=== PATIENT | female | born 1980 | race Caucasian/White ===

== ENCOUNTER → 2020-08-25 14:06 | Outpatient (BNVA) | payer OTHER, SELFPAY | PROVIDERS: Family Provider Family Medicine; PCP Family Medicine; Visit Provider Internal Medicine | DX: E03.8 Other specified hypothyroidism (principal); E06.3 Autoimmune thyroiditis; E55.9 Vitamin D deficiency, unspecified; M25.50 Pain in unspecified joint; R79.89 Other specified abnormal findings of blood chemistry | CPT/HCPCS: 99205 ==

== ENCOUNTER → 2020-09-22 09:55 | Outpatient (BNVA) | payer OTHER, SELFPAY | PROVIDERS: Family Provider Family Medicine; PCP Family Medicine; Visit Provider Internal Medicine | DX: M25.50 Pain in unspecified joint (principal); Z11.59 Encounter for screening for other viral diseases; E03.9 Hypothyroidism, unspecified; E55.9 Vitamin D deficiency, unspecified; Z79.899 Other long term (current) drug therapy; F41.9 Anxiety disorder, unspecified; R53.83 Other fatigue | CPT/HCPCS: 99204 ==

== ENCOUNTER 2020-09-22 12:13 | Outpatient (CLI) | payer OTHER, SELFPAY ==
--- NOTE | 2020-09-22 12:19 | XRR_ITS ---
PROCEDURE INFORMATION: Exam: XR Bilateral Sacroiliac Joints, 3 or More Views Exam date and time: 09/22/2020 12:51 PM Age: 40 years old Clinical indication: Condition or disease; Other: Psoriasis; Patient HX: Lauren disease; Additional info: L40.9 - psoriasis, unspecified TECHNIQUE: Imaging protocol: XR Bilateral XR of the sacroiliac joints, 3 or more views. COMPARISON: No relevant prior studies available. FINDINGS: Bones/joints: Normal. No acute fracture. There is a mild osteoarthritis seen in the bilateral sacroiliac joints. The joint spaces are preserved. Soft tissues: Normal. XR/XR sacroiliac [facility] 3V [id number] IMPRESSION: 1. Mild osteoarthritis 2. Otherwise No acute findings.
--- NOTE | 2020-09-22 12:19 | XRR_ITS ---
PROCEDURE INFORMATION: Exam: XR Right Hand Exam date and time: 09/22/2020 12:50 PM Age: 40 years old Clinical indication: Condition or disease; Other: Vitamin d deficiency; Patient HX: Jason hand pain in joints, arlen disease; Additional info: E55.9 - vitamin d deficiency, unspecified TECHNIQUE: Imaging protocol: XR Right hand. Views: 1 or 2 views. COMPARISON: No relevant prior studies available. FINDINGS: Bones/joints: Negative for acute bony abnormality Soft tissues: Normal. XR/XR hand RT 2V [id number] IMPRESSION: No acute findings.
--- NOTE | 2020-09-22 12:19 | XRR_ITS ---
PROCEDURE INFORMATION: Exam: XR Left Hand Exam date and time: 09/22/2020 12:50 PM Age: 40 years old Clinical indication: Condition or disease; Other: Vitamin d deficiency; Patient HX: Jason hand pain in joints, arlen disease; Additional info: E55.9 - vitamin d deficiency, unspecified TECHNIQUE: Imaging protocol: XR Left hand. Views: 3 or more views. COMPARISON: No relevant prior studies available. FINDINGS: Bones/joints: Negative for acute bony abnormality Soft tissues: Normal. XR/XR hand LT 2V [id number] IMPRESSION: No acute findings.
[2020-09-22 13:19] LABS: Basophils % 0.2 %; Eosinophils % 0.1 %; Hematocrit 39.5 % (37.0-47.0); Hemoglobin 12.8 g/dL (11.5-15.3); Lymphocytes # 2.4 10^3/uL (0.8-4.8); Lymphocytes % 28.7 %; Mean Corpuscular HGB Conc 32.4 g/dL (30.0-36.0); Mean Corpuscular Hemoglobin 32.1 pg (28.0-34.0); Mean Platelet Volume 10.1 fL (7.4-10.4); Monocytes # 0.5 10^3/uL (0.2-0.9); Monocytes % 6.4 %; Neutrophils # 5.47 10^3/uL (1.8-7.7); Neutrophils % 64.4 %; Nucleated Red Blood Cells % 0 %; Platelet Count 302 10^3/cmm (130-400); Red Blood Count 3.99 10^6/uL (4.1-5.3); Red Cell Distribution Width 12.5 % (12.1-15.1); White Blood Count 8.5 10^3/uL (4.0-10.0)
[2020-09-22 14:16] LABS: Erythrocyte Sedimentation Rate 19 mm/hr (0-15)
[2020-09-22 14:20] LABS: Alanine Aminotransferase 17 U/L (0-33); Albumin Level 4.6 g/dL (3.5-5.2); Alkaline Phosphatase 83 IU/L (35-105); Anion Gap 12.9 (5-19); Aspartate Amino Transferase 18 U/L (0-32); Blood Urea Nitrogen 11 mg/dL (6-20); C Reactive Protein 2.1 mg/L (0.0-4.9); Calcium 9.5 mg/dL (8.5-10.5); Carbon Dioxide 28 mmol/L (22-29); Chloride 101 mmol/L (98-107); Creatine Phosphokinase 93 U/L (26-192); Globulin 3.2 g/dL (1.3-4.6); Glomerular Filtration Rate 91.8 mL/min (90-130); Glucose 99 mg/dL (65-115); Magnesium 2.2 mg/dL (1.7-2.3); Osmolality Calculated 285 mOsm/kg (285-295); Phosphorus 3.1 mg/dL (2.5-4.5); Potassium 3.9 mmol/L (3.5-5.1); Sodium 138 mmol/L (136-145); Thyroid Stimulating Hormone 4.56 uIU/mL (0.27-4.20); Total Bilirubin 0.3 mg/dL (0.15-1.2); Total Protein 7.8 g/dL (6.6-8.7)
[2020-09-22 14:32] LABS: Hepatitis B Core AB, Total Non-Reactive (Nonreactive); Hepatitis B Surface Antigen Non-Reactive (Nonreactive); Hepatitis C Virus Antibody Non-Reactive (Nonreactive)
[2020-09-22 14:43] LABS: Calcium 9.7 mg/dL (8.5-10.5)
[2020-09-22 16:55] LABS: Ferritin 58 ng/mL (15-150)
[2020-09-22 17:02] LABS: Parathyroid Hormone 38.9 pg/mL (15-65)
[2020-09-22 17:11] LABS: Vitamin B12 442 pg/mL (232-1245)
[2020-09-23 11:12] LABS: COMPLEMENT COMPONENT C3C 152 mg/dL (83-193); COMPLEMENT COMPONENT C4C 19 mg/dL (15-57)
[2020-09-23 13:23] LABS: Cyclic Citrullinated Peptide <16 UNITS
[2020-09-23 15:59] LABS: COMPLEMENT, TOTAL (CH50) >60 U/mL (31-60)
[2020-09-24 12:55] LABS: THYROID PEROXIDASE ANTIBODIES >900 IU/mL (<9)
[2020-09-24 15:13] LABS: ANA SCREEN, IFA NEGATIVE (NEGATIVE)
[2020-09-24 16:43] LABS: CENTROMERE B ANTIBODY <1.0 NEG AI (<1.0 NEG); JO-1 ANTIBODY <1.0 NEG AI (<1.0 NEG); RNP ANTIBODY <1.0 NEG AI (<1.0 NEG); SCL-70 ANTIBODY <1.0 NEG AI (<1.0 NEG); SJOGREN'S ANTIBODY (SS-A) <1.0 NEG AI (<1.0 NEG); SM ANTIBODY <1.0 NEG AI (<1.0 NEG); SS-B <1.0 NEG AI (<1.0 NEG)
[2020-09-25 18:32] LABS: Vitamin B1(Thiamin) Plas/Ser 10 nmol/L (8-30)
[2020-09-26 17:48] LABS: Tissue Transglutaminase IgA Ab <1 U/mL; Tissue transglutaminase Ab.IgG 4 U/mL
[2020-09-27 16:54] LABS: Gliadin Ab.IgA 17 U (<20); Gliadin Ab.IgG 3 U (<20)
[2020-09-27 23:02] LABS: DNA AB (DS) CRITHIDIA,IFA NEGATIVE (NEGATIVE)
[2020-09-28 22:37] LABS: Immunoglobulin A 390 mg/dL (47-310)
== END 2020-09-22 12:14 | disposition home or self-care (01) ==
PROVIDERS: PCP Emergency Medicine; Visit Provider Internal Medicine
DX: E55.9 Vitamin D deficiency, unspecified (principal); L40.9 Psoriasis, unspecified; D86.9 Sarcoidosis, unspecified; Z11.59 Encounter for screening for other viral diseases
CPT/HCPCS: 36415; 72202; 73120; 80053; 82310; 82550; 82607; 82728; 82784; 83516; 83735; 83970; 84100; 84425; 84443; 85025; 85651; 86140; 86160; 86162; 86235; 86255; 86376; 86704; 86803; 87340

== ENCOUNTER 2020-10-12 15:04 | Outpatient (CLI) | payer OTHER, SELFPAY ==
[2020-10-12 15:58] LABS: Total Volume Urine 1000 ml
[2020-10-12 16:09] LABS: Urine Creatinine 108 mg/dL (28-217)
[2020-10-15 19:03] LABS: Total Urine 1000 mL; Urine Creatinine 1.05 g/24 h (0.50-2.15)
== END 2020-10-12 15:05 | disposition home or self-care (01) ==
LOC: LAB 15:15
PROVIDERS: PCP Emergency Medicine; Visit Provider Internal Medicine
DX: E55.9 Vitamin D deficiency, unspecified (principal); R79.89 Other specified abnormal findings of blood chemistry; E03.8 Other specified hypothyroidism; E06.3 Autoimmune thyroiditis
CPT/HCPCS: 82530; 82570

== ENCOUNTER → 2020-12-23 13:00 | Outpatient (BNVA) | payer OTHER, SELFPAY | PROVIDERS: PCP Emergency Medicine; Visit Provider Internal Medicine | DX: M25.50 Pain in unspecified joint (principal); E51.9 Thiamine deficiency, unspecified; E03.8 Other specified hypothyroidism; E06.3 Autoimmune thyroiditis; M53.3 Sacrococcygeal disorders, not elsewhere classified; Z79.899 Other long term (current) drug therapy; F17.290 Nicotine dependence, other tobacco product, uncomplicated | CPT/HCPCS: 36415; 84439; 84443; 86812; 99214 ==

== ENCOUNTER → 2021-01-19 15:06 | Outpatient (BNVA) | payer OTHER, SELFPAY | PROVIDERS: PCP Emergency Medicine; Visit Provider Orthopaedic Surgery | DX: M25.559 Pain in unspecified hip (principal) | CPT/HCPCS: 73521; 73522 ==

== ENCOUNTER → 2021-03-10 08:45 | Outpatient (BNVA) | payer OTHER, SELFPAY | PROVIDERS: PCP Emergency Medicine; Visit Provider Specialist | DX: G43.711 Chronic migraine without aura, intractable, with status migrainosus (principal); M79.7 Fibromyalgia; E03.8 Other specified hypothyroidism; E06.3 Autoimmune thyroiditis; F17.290 Nicotine dependence, other tobacco product, uncomplicated | CPT/HCPCS: 99204 ==

== ENCOUNTER 2021-04-19 12:09 | Outpatient (CLI) | payer OTHER, SELFPAY ==
[2021-04-19 13:27] LABS: Free T4 Free Thyroxine 1.39 ng/dL (0.82-1.77); Thyroid Stimulating Hormone 0.55 uIU/mL (0.27-4.20)
--- NOTE | 2021-04-19 13:30 | US_ITS ---
WS: [id number] THYROID ULTRASOUND HISTORY: Dysphagia COMPARISON: None available. Right lobe: 1.1 cm x 1.2 cm x 3.5 cm (w x ap x l). Volume: 2.4 cm3. Diffuse atrophy of the gland. Coarsened echotexture throughout the thyroid. Consistent with history o f Lauren's. No increased vascularity. Left lobe: 1.1 cm x 1.1 cm x 3.5 cm (w x ap x l). Volume: 2.2 cm3. Atrophied gland with coarse echotexture and heterogeneous appearance. Isthmus: 0.3 cm. 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
== END 2021-04-19 12:10 | disposition home or self-care (01) ==
LOC: US 12:12
PROVIDERS: PCP Emergency Medicine; Visit Provider Internal Medicine
DX: R13.10 Dysphagia, unspecified (principal); E03.8 Other specified hypothyroidism; E06.3 Autoimmune thyroiditis
CPT/HCPCS: 36415; 76536; 84439; 84443

== ENCOUNTER → 2021-06-14 10:45 | Outpatient (BNVA) | payer OTHER, SELFPAY | PROVIDERS: PCP Emergency Medicine; Visit Provider Internal Medicine | DX: E03.8 Other specified hypothyroidism (principal); E06.3 Autoimmune thyroiditis; Z79.899 Other long term (current) drug therapy; E55.9 Vitamin D deficiency, unspecified | CPT/HCPCS: 36415; 80053; 85025; 85651; 86140; 86431 ==

== ENCOUNTER → 2021-06-15 13:18 | Outpatient (BNVA) | payer OTHER, SELFPAY | PROVIDERS: PCP Emergency Medicine; Visit Provider Specialist | DX: G43.711 Chronic migraine without aura, intractable, with status migrainosus (principal) | CPT/HCPCS: 99214 ==

== ENCOUNTER 2021-06-25 10:41 | Outpatient (CLI) | payer OTHER, SELFPAY ==
[2021-06-25 11:04] VITALS: BP 139/82; PULSE 79; RESP 18; TEMP 36.7; O2SAT 99; BMI 25.4
[2021-06-25 12:24] VITALS: BP 132/86; PULSE 67; RESP 18; TEMP 36.4
== END 2021-06-25 10:42 | disposition home or self-care (01) ==
LOC: OPS 10:42
PROVIDERS: PCP Emergency Medicine; Visit Provider Nurse Practitioner Family
DX: U07.1 COVID-19 (principal)
CPT/HCPCS: 96365

== ENCOUNTER 2021-07-21 15:52 | Outpatient (CLI) | payer OTHER, SELFPAY ==
--- NOTE | 2021-07-21 16:00 | MR_ITS ---
WS: [id number] MRI HEAD WITHOUT CONTRAST TECHNIQUE: Sagittal T1, T2 axial, T2 axial FLAIR, axial and coronal T1 images, axial susceptibility w eighted imaging, axial diffusion weighted images, and coronal T2 images were obtained. CLINICAL INFORMATION: G43.711 - Chronic migraine without aura, intractable, wit... COMPARISON: None. FINDINGS: No evidence restricted diffusion to suggest acute ischemia. Ventricular system and basal cisterns are patent. A few tiny foci of T2 hyperintensity in the frontal periventricular and subcortical white ma tter nonspecific in a patient this age but can be seen with migraine headaches. No hemosiderin on rajeev ceptibly weighted images. Normal optic chiasm and pituitary infundibulum. Temporal lobes and hippocampal formations are normal in appearance. Normal posterior fossa. Normal va scular flow voids at the skull base. No extra-axial fluid collections. No evidence of mass or mass ef fect. Air-fluid levels in the maxillary sinuses. Mild mucosal thickening in the paranasal sinuses. Mi ld mucosal thickening right mastoid tip. MR/MR head wo con* [id number] IMPRESSION: 1. No evidence of restricted diffusion to suggest acute ischemia. 2. A few small foci of T2 hyperintensity in the frontal and periventricular wh ite matter nonspecific in a patient this age but can be seen with migraine head aches. 3. Temporal lobes and hippocampal formations are normal in appearance. 4. Maxillary sinusitis with air-fluid levels. Mild mucosal thickening in the p aranasal sinuses. 5. No hemosiderin on the susceptibly weighted images.
== END 2021-07-21 15:53 | disposition home or self-care (01) ==
LOC: RADSHAW 16:05
PROVIDERS: PCP Emergency Medicine; Visit Provider Specialist
DX: G43.711 Chronic migraine without aura, intractable, with status migrainosus (principal); J32.0 Chronic maxillary sinusitis
CPT/HCPCS: 70551

== ENCOUNTER → 2021-08-05 14:47 | Outpatient (BNVA) | payer MEDICAID, SELFPAY | PROVIDERS: PCP Emergency Medicine; Visit Provider Specialist | DX: M79.642 Pain in left hand (principal); G43.711 Chronic migraine without aura, intractable, with status migrainosus | CPT/HCPCS: 64615; 99213; J0585 ==

== ENCOUNTER → 2021-10-11 10:22 | Outpatient (BNVA) | payer MEDICAID, SELFPAY | PROVIDERS: PCP Emergency Medicine; Referring Provider Specialist; Visit Provider Specialist | DX: G56.03 Carpal tunnel syndrome, bilateral upper limbs (principal) | CPT/HCPCS: 73130 ==

== ENCOUNTER 2021-10-11 11:12 | Outpatient (CLI) | payer MEDICAID, SELFPAY ==
[2021-10-11 12:38] LABS: Free T4 Free Thyroxine 1.51 ng/dL (0.82-1.77); Thyroid Stimulating Hormone 0.04 uIU/mL (0.27-4.20)
[2021-10-12 11:08] LABS: T3 Total 91 ng/dL (76-181)
== END 2021-10-11 11:13 | disposition home or self-care (01) ==
LOC: LAB 11:16
PROVIDERS: PCP Emergency Medicine; Visit Provider Internal Medicine
DX: E03.8 Other specified hypothyroidism (principal); E06.3 Autoimmune thyroiditis; R79.89 Other specified abnormal findings of blood chemistry
CPT/HCPCS: 84439; 84443; 84480

== ENCOUNTER → 2021-10-28 13:59 | Outpatient (BNVA) | payer MEDICAID, SELFPAY | PROVIDERS: PCP Emergency Medicine; Visit Provider Specialist | DX: G43.711 Chronic migraine without aura, intractable, with status migrainosus (principal); M18.9 Osteoarthritis of first carpometacarpal joint, unspecified; E06.3 Autoimmune thyroiditis; F42.9 Obsessive-compulsive disorder, unspecified; F32.A Depression, unspecified; F17.290 Nicotine dependence, other tobacco product, uncomplicated | CPT/HCPCS: 64615; 99214; J0585 ==

== ENCOUNTER 2021-11-10 21:25 | Emergency (ER) | payer MEDICAID, SELFPAY ==
[2021-11-10 22:38] VITALS: BP 173/101; PULSE 97; RESP 13; TEMP 37.1; O2SAT 98; BMI 23.6
--- NOTE | 2021-11-10 22:46 | XRR_ITS ---
PROCEDURE INFORMATION: Exam: XR Chest Exam date and time: 11/10/2021 11:13 PM Age: 41 years old Clinical indication: Cough and shortness of breath; Patient HX: Cough with congestion. SOB. ; Additional info: Cough, chest congestion TECHNIQUE: Imaging protocol: XR of the chest. Views: 1 view. COMPARISON: No relevant prior studies available. FINDINGS: Lungs: Unremarkable. No consolidation. Pleural spaces: Unremarkable. No pleural effusion. No pneumothorax. Heart/Mediastinum: Unremarkable. No cardiomegaly. Bones/joints: Unremarkable. XR/XR chest 1V portable [id number] IMPRESSION: No acute findings.
--- NOTE | 2021-11-10 23:03 | ED_ITS ---
HPI - SOB/Dyspnea General: Chief Complaint: Shortness of Breath/Dyspnea Stated Complaint: sob Time Seen by Provider: 11/10/21 22:46 History of Present Illness: HPI Narrative: 41-year-old female comes in today for complaints of sinus pressure, cough and some chest congestion since Monday. Patient had some Botox injections for chronic migraines last Monday. Patient believes the illness may be secondary to the Botox administration. Patient reports that she has had similar symptoms before with Botox, but not with respiratory symptoms. Patient appears mildly unwell but not toxic. Patient does have mild hoarseness of voice. Associated symptoms: Reports chest congestion; Deny chest pain Review of Systems General: Reports: 10 or more systems reviewed and unremarkable except in HPI and below ENMT: Reports: sinus pain Card: Denies: chest pain Resp: Reports: non-productive cough and chest congestion Musc: Denies: neck pain or back pain Skin/Breast: Denies: rash PFSH ED PFSH: Medical History Chronic cystitis Fibromyalgia Lauren's disease (Unknown) Surgical History H/O: hysterectomy History of endometrial ablation Previous section Family History Mother Cancer Father Diabetes Cancer Bone and Prostate Social History Smoking and tobacco status: current every day smoker e-cigarettes E-Cigarette Details: vaporizer device Second hand smoke exposure: Yes Alcohol intake: never History of recent travel: No Physical Exam Const: COMMON NORMALS: alert HENMT: COMMON NORMALS: TM's normal bilaterally NOSE: Nasal discharge present clear TYMPANIC MEMBRANE: TM's normal bilaterally THROAT: posterior oropharynx normal Resp: COMMON NORMALS: normal respiratory effort AUSCULTATION: wheezes (Mild expiratory wheeze) Cardio: COMMON NORMALS: regular rate and regular rhythm RATE: regular rate RHYTHM: regular rhythm Extremity: COMMON NORMALS: no pedal edema Neuro: SENSORIUM/ORIENTATION: Yes alert Skin: COMMON NORMALS: no rashes or lesions noted GENERAL SKIN EXAM: no rashes or lesions noted Course Vital Signs: Vital signs: Vital Signs Temperature 98.8 F 11/10/21 22:38 Pulse Rate 97 11/10/21 22:38 Respiratory Rate 13 11/10/21 22:38 Blood Pressure 173/101 11/10/21 22:38 Pulse Oximetry 98 11/10/21 22:38 MDM - SOB/Dyspnea Medical Decision Making Patient presents with flulike symptoms. Patient had recently been given some Botox injections last Monday and had a similar response to prior dosing. On exam patient has some mild expiratory wheezes. Skin is warm and dry. Clear drainage in the posterior pharynx. Vital signs are normal. Differential diagnosis includes influenza, pneumonia, bronchitis. Chest x-ray was normal. Flu test was negative. I believe the patient probably has a bronchitis secondary to an immune response to the Botox. We will go ahead and give 1 dose of dexamethasone, albuterol to use as needed for wheezing or shortness of breath, and cover with antibiotics for secondary bacterial infection due to patient's history of autoimmune disorder. Lab Data Labs/Radiology: Laboratory Results Influenza Type A Ag Negative (Negative) 11/11/21 00:10 Influenza Type B Ag Negative (Negative) 11/11/21 00:10 Discharge Plan Discharge Patient Disposition: Home Clinical Impression: Bronchitis Condition: Stable Prescriptions: New albuterol sulfate 90 mcg/actuation HFA aerosol inhaler 2 inh inhalation Q4H PRN (Reason: shortness of breath or wheezing) Qty: 8.5 0RF doxycycline monohydrate 100 mg capsule 100 mg PO Q12H 7 Days Qty: 14 0RF No Action Medical Marijuana inhalation 0RF quetiapine [Seroquel] 100 mg tablet 100 mg PO DAILY 0RF lidocaine 5 % adhesive patch,medicated 1 patch topical DAILY 0RF Rx Instructions: leave on most painful area for up to 12 hrs pantoprazole 40 mg tablet,delayed release (DR/EC) 40 mg PO DAILY 0RF dextroamphetamine-amphetamine 20 mg capsule,extended release 24hr 20 mg PO DAILY 0RF diazepam 5 mg tablet 5 mg PO BID 0RF atenolol 25 mg tablet 50 mg PO DAILY 0RF duloxetine 60 mg capsule,delayed release(DR/EC) 30 mg PO DAILY 0RF vitamin B complex [B Complex-Vitamin B12] Tablet 1 tab PO DAILY Qty: 30 2RF thiamine HCl (vitamin B1) 100 mg tablet 100 mg PO DAILY Qty: 30 2RF meloxicam 15 mg tablet 15 mg PO DAILY Qty: 30 2RF bupropion HCl 200 mg tablet sustained-release 12 hr 200 mg PO DAILY 0RF lgjfbmo-ofqofypmh-khau 333-133-5 mg tablet PO DAILY 0RF levothyroxine 88 mcg tablet 88 mcg PO DAILY Qty: 90 3RF Rx Instructions: Take one tablet by mouth Monday thru Monday and skip Monday. Discharge Orders: Discharge ED (Routine); Ordered 11/11/21 Ordered By: Matty Chan Referrals: RACQUEL GARCIA MD [Primary Care Provider] - Discharge Diet: Usual diet Discharge Activity: Increase activity as tolerated Patient Instructions: Acute Bronchitis (ED) Activity Restrictions/Additional Instructions: Drink plenty of fluids. Use albuterol as needed for coughing or shortness of breath. Take antibiotic as directed. Follow-up with primary care in 2 to 3 days for recheck. Return to ER for new concerns. Coding Level of Care Code ED Surface Plate Inspector for Galdino Fwjuan carlos Exam Detailed
[2021-11-11] VITALS: BP 140/88; PULSE 78; RESP 16; O2SAT 98
[2021-11-11 00:34] LABS: Influenza A by IFA Negative (Negative); Influenza B by IFA Negative (Negative)
[2021-11-11] MEDS: dexamethasone 10 mg/mL INJ IM (00:57)
[2021-11-11] MEDS: doxycycline 100 mg Tablet PO (00:57)
[2021-11-11 01:14] VITALS: BP 140/88; PULSE 78; RESP 16; O2SAT 98
--- NOTE | 2021-11-11 01:20 | PC.NURSE ---
Gave inhaler to patient and gave her two puffs.
== END 2021-11-11 01:10 | disposition home or self-care (01) ==
PROVIDERS: Emergency Provider Nurse Practitioner Family; PCP Emergency Medicine
DX: J40 Bronchitis, not specified as acute or chronic (principal); E06.3 Autoimmune thyroiditis; F17.290 Nicotine dependence, other tobacco product, uncomplicated; Z79.899 Other long term (current) drug therapy
CPT/HCPCS: 71045; 87804; 96372; 99283; J1100; J3535

== ENCOUNTER → 2021-12-15 08:17 | Outpatient (BNVA) | payer MEDICAID, SELFPAY | PROVIDERS: PCP Emergency Medicine; Referring Provider Specialist; Visit Provider Specialist | DX: G56.01 Carpal tunnel syndrome, right upper limb (principal); E06.3 Autoimmune thyroiditis | CPT/HCPCS: 36415; 84439; 84443; 95910; 95912 ==

== ENCOUNTER → 2021-12-21 13:43 | Outpatient (BNVA) | payer MEDICAID, SELFPAY | PROVIDERS: PCP Emergency Medicine; Visit Provider Internal Medicine | DX: E03.8 Other specified hypothyroidism (principal); E06.3 Autoimmune thyroiditis; L98.9 Disorder of the skin and subcutaneous tissue, unspecified; M25.50 Pain in unspecified joint; F17.290 Nicotine dependence, other tobacco product, uncomplicated | CPT/HCPCS: 99214 ==

== ENCOUNTER 2022-01-14 12:57 | Outpatient (CLI) | payer MEDICAID, SELFPAY ==
[2022-01-14 13:40] LABS: Basophils % 0.5 %; Eosinophils # 0.1 10^3/uL (0.0-0.8); Eosinophils % 1.8 %; Hemoglobin 13.1 g/dL (11.5-15.3); Lymphocytes # 2.5 10^3/uL (0.8-4.8); Lymphocytes % 32.2 %; Mean Corpuscular HGB Conc 33.6 g/dL (30.0-36.0); Mean Corpuscular Hemoglobin 32.5 pg (28.0-34.0); Mean Corpuscular Volume 96.8 fl (81-99); Mean Platelet Volume 10.9 fL (7.4-10.4); Monocytes # 0.5 10^3/uL (0.2-0.9); Monocytes % 6.7 %; Neutrophils # 4.55 10^3/uL (1.8-7.7); Neutrophils % 58.5 %; Nucleated Red Blood Cells % 0 %; Platelet Count 296 10^3/cmm (130-400); Red Blood Count 4.03 10^6/uL (4.1-5.3); Red Cell Distribution Width 12.9 % (12.1-15.1); White Blood Count 7.8 10^3/uL (4.0-10.0)
[2022-01-14 14:09] LABS: Alanine Aminotransferase 13 U/L (0-33); Albumin Level 4.7 g/dL (3.5-5.2); Alkaline Phosphatase 83 IU/L (35-105); Anion Gap 14.1 (5-19); Aspartate Amino Transferase 15 U/L (0-32); Blood Urea Nitrogen 8 mg/dL (6-20); Calcium 9.6 mg/dL (8.5-10.5); Carbon Dioxide 26 mmol/L (22-29); Chloride 102 mmol/L (98-107); Glomerular Filtration Rate 78.3 mL/min (90-130); Glucose 105 mg/dL (65-115); Osmolality Calculated 285 mOsm/kg (285-295); Potassium 4.1 mmol/L (3.5-5.1); Sodium 138 mmol/L (136-145); Total Bilirubin 0.2 mg/dL (0.15-1.2); Total Protein 7.7 g/dL (6.6-8.7)
[2022-01-21 14:15] LABS: Erythrocyte Sedimentation Rate 11 mm/hr (0-15)
== END 2022-01-14 12:58 | disposition home or self-care (01) ==
LOC: LAB 13:04
PROVIDERS: PCP Emergency Medicine; Visit Provider Internal Medicine
DX: M19.90 Unspecified osteoarthritis, unspecified site (principal); M79.7 Fibromyalgia; M25.50 Pain in unspecified joint
CPT/HCPCS: 80053; 85025; 85651; 86140

== ENCOUNTER → 2022-01-18 14:10 | Outpatient (BNVA) | payer MEDICAID, SELFPAY | PROVIDERS: PCP Emergency Medicine; Visit Provider Internal Medicine | DX: M19.90 Unspecified osteoarthritis, unspecified site (principal); M79.7 Fibromyalgia | CPT/HCPCS: 72040; 85651; 99214 ==

== ENCOUNTER → 2022-01-20 14:36 | Outpatient (BNVA) | payer MEDICAID, SELFPAY | PROVIDERS: PCP Emergency Medicine; Visit Provider Specialist | DX: M79.7 Fibromyalgia (principal); F42.9 Obsessive-compulsive disorder, unspecified; F41.1 Generalized anxiety disorder; G43.711 Chronic migraine without aura, intractable, with status migrainosus | CPT/HCPCS: 64615; 99214 ==

== ENCOUNTER → 2022-03-01 16:29 | Outpatient (BNVA) | payer MEDICAID, SELFPAY | PROVIDERS: Visit Provider Family Medicine | DX: E03.8 Other specified hypothyroidism (principal); E06.3 Autoimmune thyroiditis; F32.A Depression, unspecified; F41.1 Generalized anxiety disorder; G43.711 Chronic migraine without aura, intractable, with status migrainosus; M25.50 Pain in unspecified joint; M79.7 Fibromyalgia; Z76.89 Persons encountering health services in other specified circumstances; E55.9 Vitamin D deficiency, unspecified; L98.9 Disorder of the skin and subcutaneous tissue, unspecified; R76.8 Other specified abnormal immunological findings in serum | CPT/HCPCS: 80053; 80061; 82306; 84439; 84443; 84481; 85025; 85651; 86003; 86008; 86140; 86803; 87806 ==

== ENCOUNTER 2022-03-16 14:01 | Outpatient (CLI) | payer MEDICAID, SELFPAY ==
--- NOTE | 2022-03-16 14:49 | XR_ITS ---
WS: [id number] Sacroiliac joints, 3 views, 03/16/2022 Clinical Data: sacroliliac Comparison: Pelvis and right hip, 01/19/2021. Findings: The SI joints are normal in width. No erosion, sclerosis or destruction is seen. There are no fractur es or dislocations. The adjacent visualized pelvis and hips are unremarkable. XR/XR sacroiliac jts m 3V [id number] Impression: Negative SI joints.
== END 2022-03-16 14:02 | disposition home or self-care (01) ==
LOC: RAD 14:04
PROVIDERS: PCP Family Medicine; Visit Provider Internal Medicine
DX: M53.3 Sacrococcygeal disorders, not elsewhere classified (principal); L98.9 Disorder of the skin and subcutaneous tissue, unspecified; E03.8 Other specified hypothyroidism; K21.9 Gastro-esophageal reflux disease without esophagitis; E06.3 Autoimmune thyroiditis; M25.541 Pain in joints of right hand; M25.542 Pain in joints of left hand; Z87.891 Personal history of nicotine dependence
CPT/HCPCS: 72202; 99214

== ENCOUNTER → 2022-03-23 11:51 | Day surgery (SDC) | payer MEDICAID, SELFPAY ==
[2022-03-23] MEDS: ondansetron 2 mg/ML SDV 2 mL 4 MG IVP (12:12)
[2022-03-23] MEDS: diphenhydrAMINE 50 mg/mL SDV 1mL 25 MG IVP (12:16)
[2022-03-23] MEDS: dihydroergotamine 1 mg/mL Inj 0.5 MG IVP ×4 (12:37→13:36)
[2022-03-23 12:40] VITALS: BP 152/63; PULSE 78; RESP 18; TEMP 36.6; O2SAT 99
[2022-03-23] MEDS: ketorolac 30 mg/mL INJ IVP (14:04)
--- NOTE | 2022-03-23 14:20 | PC.NURSE ---
Pt to GI lab for DHE protocol. Pt c/o pain behind right eye rated at 6. Pt received Zofran 4 mg IVP, Benadryl 25 mg IVP, DHE total of 2 mg IVP, and Toradol 30 mg IVP. Rates pain at 0 upon departure.
== END ==
PROVIDERS: PCP Family Medicine; Visit Provider Specialist
DX: G43.711 Chronic migraine without aura, intractable, with status migrainosus (principal)
CPT/HCPCS: 96374; 96375; J1110; J1200; J1885; J2405

== ENCOUNTER → 2022-03-29 17:06 | Outpatient (BNVA) | payer MEDICAID, SELFPAY | PROVIDERS: PCP Family Medicine; Visit Provider Family Medicine | DX: G47.19 Other hypersomnia (principal); F98.8 Other specified behavioral and emotional disorders with onset usually occurring in childhood and adolescence; F32.A Depression, unspecified; R53.83 Other fatigue; R79.89 Other specified abnormal findings of blood chemistry | CPT/HCPCS: 82672; 83001; 84144 ==

== ENCOUNTER 2022-05-04 10:10 | Outpatient (CLI) | payer MEDICAID, SELFPAY ==
[2022-05-04 11:40] LABS: Free T4 Free Thyroxine 1.51 ng/dL (0.82-1.77); Thyroid Stimulating Hormone 0.12 uIU/mL (0.27-4.20)
== END 2022-05-04 10:11 | disposition home or self-care (01) ==
LOC: LAB 10:14
PROVIDERS: PCP Family Medicine; Visit Provider Internal Medicine
DX: E03.8 Other specified hypothyroidism (principal); E06.3 Autoimmune thyroiditis
CPT/HCPCS: 84439; 84443

== ENCOUNTER → 2022-05-17 09:00 | Outpatient (BNVA) | payer MEDICAID, SELFPAY | PROVIDERS: PCP Family Medicine; Visit Provider Obstetrics & Gynecology | DX: R23.2 Flushing (principal); R61 Generalized hyperhidrosis; R10.2 Pelvic and perineal pain | CPT/HCPCS: 83001 ==

== ENCOUNTER 2022-05-25 09:13 | Day surgery (SDC) | payer MEDICAID, SELFPAY ==
[2022-05-24 12:34] VITALS: BMI 25.4
[2022-05-25 09:35] VITALS: BP 151/93; PULSE 77; RESP 18; TEMP 30.5; O2SAT 97
[2022-05-25] MEDS: sodium chloride 0.9% 1,000 ML 30 ML IV (09:40)
--- NOTE | 2022-05-25 09:59 | P.ANESASSM_ITS ---
Pre-Anesthetic Assessment Height/Weight: Height 1.52 m Weight 58.967 kg Temp Pulse Resp BP Pulse Ox O2 Del Method 87 F L 77 18 151/93 97 05/25/22 09:35 05/25/22 09:35 05/25/22 09:35 05/25/22 09:35 05/25/22 09:35 05/25/22 09:35 Operation Date: 05/25/22 10:45 Proposed Procedures p EGD 83213,K21.9(Not Applicable) - Carlin Oscar DO Familial anesthetic complications: None Was Beta Jamee taken within 24 hours: N/A Was Clonidine taken within 24 hours: N/A Last intake: Intake Last Liquid Date 05/23/22 Last Liquid Time 23:59 Last Solid Date 05/23/22 Last Solid Time 12:00 Social Tobacco and No alcohol Exam alert, oriented x 3, clear to auscultation bilaterally and regular rate & rhythm Airway Mallampati: Class II Dentition: false Pulmonary Asthma GI Gastroesophageal Reflux Disease Metabolic Thyroid Disease Anesthetic Plan ASA status: 3 Anesthesia: MAC Risk of > 500 ml blood loss (7ml/kg in children): No Medications/Allergies Home Medications Medication Instructions Recorded Confirmed Last Taken Type diazepam 5 mg tablet 5 mg PO BID PRN anxiety 08/25/20 05/24/22 05/24/22 History lidocaine 5 % topical patch 1 patch topical DAILY PRN Pain 08/25/20 05/24/22 05/24/22 History thiamine HCl (vitamin B1) 100 mg 100 mg PO DAILY #30 tabs 12/23/20 05/24/22 05/24/22 Rx tablet vitamin B complex (B 1 tab PO DAILY #30 tabs 12/23/20 05/24/22 05/24/22 Rx Complex-Vitamin B12 tablet) pkzygoq-atikqqjxu-ttun 333 mg-133 1 tab PO DAILY 03/01/21 05/24/22 05/24/22 History mg-5 mg tablet Medical Marijuana 1 inh inhalation PRN pain 03/10/21 05/24/22 05/24/22 History albuterol sulfate 90 mcg/actuation 2 inh inhalation Q4H PRN shortness 11/11/21 05/24/22 05/24/22 Rx aerosol inhaler of breath or wheezing #8.5 grams duloxetine 60 mg capsule,delayed 30 mg PO DAILY #90 caps 01/20/22 05/24/22 05/24/22 Rx release quetiapine 100 mg tablet (Seroquel) 100 mg PO DAILY #90 tabs 01/20/22 05/24/22 05/24/22 Rx levothyroxine 88 mcg tablet 88 mcg PO DAILY #102 tabs 03/16/22 05/24/22 05/25/22 08:00 Rx propranolol 20 mg tablet 20 mg PO BID #60 tabs 04/14/22 05/24/22 05/25/22 08:00 Rx clotrimazole 10 mg joslyn 10 mg mucous membrane TID #60 tabs 05/03/22 05/24/22 05/24/22 Rx ibuprofen 200 mg tablet (IBU-200) 200 mg PO Q6H PRN Pain 05/04/22 05/24/22 05/24/22 History topiramate 50 mg tablet 50 mg PO BID pain 30 days #60 tabs 05/04/22 05/24/22 05/24/22 Rx bupropion HCl 200 mg tablet,12 hr 75 mg PO BID 05/17/22 05/24/22 05/24/22 Hi story sustained-release (Wellbutrin SR) pantoprazole 40 mg tablet,delayed 40 mg PO BID 6 weeks #84 tabs 05/23/22 05/24/22 05/24/22 Rx release (Protonix) dextroamphetamine-amphetamine ER 20 mg PO DAILY 05/24/22 05/24/22 05/24/22 History 20 mg 24hr capsule,extend release (Adderall XR) Allergies Allergy/AdvReac Type Severity Reaction Status Date / Time cefadroxil [From Duricef] Allergy hives Verified 05/24/22 12:28 methylprednisolone Allergy hives Verified 05/24/22 12:28 [From Solu-Medrol] Current Medications Generic Name Dose Route Start Last Admin Trade Name Freq PRN Reason Stop Dose Admin Sodium Chloride 1,000 mls @ 30 mls/hr 05/25/22 09:30 05/25/22 09:40 Sodium Chloride 0.9% IV 05/26/22 09:29 30 mls/hr .Q24H HERNAN Administration PFSH Anesthesia Medical History Chronic cystitis Fibromyalgia Lauren's disease (Unknown) History of nonmelanoma skin cancer Hx of sigmoidoscopy Lumbago Psychiatric care Surgical History H/O: hysterectomy History of dental surgery History of endometrial ablation History of esophagogastroduodenoscopy (EGD) History of foot surgery Bone Spur Removal Previous section Family History Mother Hypertension Father Hyperlipidemia Grandfather Diabetes paternal Thyroid condition paternal Heart disease paternal Colon cancer maternal great, age unknown Grandmother Thyroid condition maternal Vulvar cancer paternal, 50's Family/Other Thyroid condition maternal cousin had thyroid cancer Denies family history of Ovarian cancer Clotting disorder Breast cancer Anesthesia complication Bleeding disorder Uterine cancer Stroke Social History Smoking and tobacco status: current every day smoker (vape ) e-cigarettes E- Cigarette Details: vaporizer device Alcohol intake: never History of recent travel: No Female Reproductive History Spontaneous abortions: No Data Anesthesia Cardiac Studies: No Data to Display
--- NOTE | 2022-05-25 11:31 | W.PM.OPSUD ---
Surgery/Procedure H&P Update DATE OF PROCEDURE: May 25, 2022 DATE H&P PERFORMED: 05/23/22 PLANNED PROCEDURE: Operation Date: 05/25/22 10:45 Proposed Procedures p EGD 40362,K21.9(Not Applicable) - Carlin Oscar DO
[2022-05-25 11:49] VITALS: BP 105/69; PULSE 77; RESP 18; TEMP 36.8; O2SAT 97
[2022-05-25 12:00] VITALS: BP 105/73; PULSE 83; RESP 18; O2SAT 93
--- NOTE | 2022-05-25 12:47 | ANE.PACU2 ---
Inpatient post-anesthesia follow up: Airway intact: Yes Vital signs: Temperature 98.3 F Pulse Rate 83 Respiratory Rate 18 Blood Pressure 105/73 Pulse Oximetry 93 Oxygen Delivery Me thod Room Air Oxygen Flow Rate 4 Fraction of Inspir ed Oxygen Hydration adequate: Yes Nausea and vomiting: No Pain level: 1 Mental status: Baseline
== END 2022-05-25 12:25 | disposition home or self-care (01) ==
PROVIDERS: PCP Family Medicine; Visit Provider Surgery
PROC: 0DJ08ZZ Inspection of Upper Intestinal Tract, Via Natural or Artificial Opening Endoscopic (ICD-10-PCS; CPT 43235; principal; 2022-05-25 10:45)
DX: K21.9 Gastro-esophageal reflux disease without esophagitis (principal); K29.50 Unspecified chronic gastritis without bleeding; B96.81 Helicobacter pylori [H. pylori] as the cause of diseases classified elsewhere; M79.7 Fibromyalgia; F17.210 Nicotine dependence, cigarettes, uncomplicated; F17.290 Nicotine dependence, other tobacco product, uncomplicated
CPT/HCPCS: 43239; 88305; 88342; J2704; J7030

== ENCOUNTER → 2022-05-31 14:34 | Outpatient (BNVA) | payer MEDICAID, OTHER, SELFPAY | PROVIDERS: PCP Family Medicine; Visit Provider Obstetrics & Gynecology | DX: R10.2 Pelvic and perineal pain (principal); N83.02 Follicular cyst of left ovary; N83.01 Follicular cyst of right ovary; Z90.710 Acquired absence of both cervix and uterus | CPT/HCPCS: 76830 ==

== ENCOUNTER 2022-06-07 15:46 | Outpatient (CLI) | payer MEDICAID, SELFPAY ==
--- NOTE | 2022-06-07 16:17 | MM_ITS ---
WS: [id number] BILATERAL 3D TOMOSYNTHESIS DIGITAL SCREENING MAMMOGRAPHY WITH CAD CLINICAL INFORMATION: Z12.39 - Encounter for other screening for malignant neop... HISTORY: Screening mammogram. No current complaints. COMPARISON: October 16, 2020 TECHNIQUE: Bilateral CC and MLO views. FINDINGS: Scattered fibroglandular densities bilaterally. No suspicious focal mass, asymmetry, calcifications, or architectural distortion. No evidence of malignancy. A few incidental punctate calcifications. MM/[place] [id number] IMPRESSION: BI-RADS: 2-Benign FOLLOW UP: 1 Year Follow-up Recommend return to annual screening mammography.
== END 2022-06-07 15:47 | disposition home or self-care (01) ==
LOC: RAD 15:47
PROVIDERS: PCP Family Medicine; Visit Provider Obstetrics & Gynecology
DX: Z12.31 Encounter for screening mammogram for malignant neoplasm of breast (principal)
CPT/HCPCS: 77063; 77067

== ENCOUNTER 2022-06-27 14:08 | Outpatient (CLI) | payer MEDICAID, SELFPAY ==
[2022-06-27 14:51] LABS: Erythrocyte Sedimentation Rate 20 mm/hr (0-15)
[2022-06-27 14:53] LABS: Basophils % 0.4 %; Eosinophils # 0.1 10^3/uL (0.0-0.8); Hematocrit 41.2 % (37.0-47.0); Hemoglobin 13.6 g/dL (11.5-15.3); Lymphocytes # 2.2 10^3/uL (0.8-4.8); Lymphocytes % 28.3 %; Mean Corpuscular Hemoglobin 31.5 pg (28.0-34.0); Mean Corpuscular Volume 95.4 fl (81-99); Mean Platelet Volume 10.3 fL (7.4-10.4); Monocytes # 0.7 10^3/uL (0.2-0.9); Monocytes % 8.6 %; Neutrophils # 4.78 10^3/uL (1.8-7.7); Neutrophils % 61.3 %; Nucleated Red Blood Cells % 0 %; Platelet Count 337 10^3/cmm (130-400); Red Blood Count 4.32 10^6/uL (4.1-5.3); White Blood Count 7.8 10^3/uL (4.0-10.0)
[2022-06-27 14:53] LABS: Add Urine Microscopic? YES; Bilirubin Urine Neg (Negative); Blood Urine Neg (Negative); Glucose Urine UA Norm (Normal); Ketones Urine Negative (Negative); Leukocyte Esterase Urine Negative (Negative); Nitrate Urine Negative (Negative); Protein Urine Neg (Negative); Specific Gravity, Urine 1.015 (1.005-1.030); Urine Appearance Hazy (CLEAR); Urine Color Yellow (Yellow); Urobilinogen Urine Norm (Negative); pH Urine 7 (5-7)
[2022-06-27 14:54] LABS: RBC Urine 0-4 /hpf (0-2); WBC Urine 0-4 /hpf (0-5)
[2022-06-27 14:55] LABS: Bacteria Urine TRACE /hpf
[2022-06-27 14:56] LABS: Add Urine Culture? No; Mucus Urine TRACE /hpf
[2022-06-27 15:10] LABS: Alanine Aminotransferase 20 U/L (0-33); Albumin Level 4.3 g/dL (3.5-5.2); Alkaline Phosphatase 93 U/L (35-105); Anion Gap 11.8 (5-19); Aspartate Amino Transferase 24 U/L (0-32); Blood Urea Nitrogen 10 mg/dL (6-20); Calcium 9.6 mg/dL (8.5-10.5); Carbon Dioxide 26 mmol/L (22-29); Chloride 99 mmol/L (98-107); Globulin 3.6 g/dL (1.3-4.6); Glomerular Filtration Rate 90.9 mL/min (90-130); Glucose 104 mg/dL (65-115); Osmolality Calculated 275 mOsm/kg (285-295); Phosphorus 2.6 mg/dL (2.5-4.5); Potassium 3.8 mmol/L (3.5-5.1); Sodium 133 mmol/L (136-145); Total Bilirubin 0.3 mg/dL (0.15-1.2); Total Protein 7.9 g/dL (6.6-8.7)
== END 2022-06-27 14:09 | disposition home or self-care (01) ==
LOC: LAB 14:10
PROVIDERS: PCP Family Medicine; Visit Provider Internal Medicine
DX: R53.82 Chronic fatigue, unspecified (principal)
CPT/HCPCS: 36415; 80053; 81001; 84100; 85025; 85651; 86140

== ENCOUNTER 2022-07-07 14:23 | Outpatient (CLI) | payer MEDICAID, SELFPAY ==
[2022-07-07 15:53] LABS: Free T4 Free Thyroxine 1.75 ng/dL (0.82-1.77); Thyroid Stimulating Hormone 0.01 uIU/mL (0.27-4.20)
[2022-07-07 22:05] LABS: Cortisol Random 5.14 ug/dL (2.47-19.5)
[2022-07-09 03:39] LABS: Gliadin Ab.IgA 2.7 U/mL; Gliadin Ab.IgG <1.0 U/mL
[2022-07-09 03:49] LABS: Tissue Transglutaminase IgA Ab <1.0 U/mL; Tissue transglutaminase Ab.IgG <1.0 U/mL
[2022-07-11 12:36] LABS: Immunoglobulin A 388 mg/dL (47-310)
[2022-07-12 21:20] LABS: Adrenocorticotropic Hormone 8 pg/mL (6-50)
--- NOTE | 2022-09-01 16:13 | XRR_ITS ---
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 Views: 2 views. COMPARISON: CR XR chest 1V portable [id number] 11/10/2021 11:13 PM FINDINGS: Lungs: Unremarkable. No consolidation. Pleural spaces: Unremarkable. No pleural effusion. No pneumothorax. Heart/Mediastinum: Unremarkable. No cardiomegaly. Bones/joints: Unremarkable.
== END 2022-07-07 14:24 | disposition home or self-care (01) ==
LOC: LAB 14:27
PROVIDERS: PCP Family Medicine; Referring Provider Internal Medicine; Visit Provider Internal Medicine
DX: M79.7 Fibromyalgia (principal); E03.8 Other specified hypothyroidism; E06.3 Autoimmune thyroiditis
CPT/HCPCS: 36415; 82024; 82533; 82784; 83516; 84439; 84443; J0585

== ENCOUNTER → 2022-09-01 15:38 | Outpatient (BNVA) | payer MEDICAID, SELFPAY | PROVIDERS: PCP Family Medicine; Visit Provider Internal Medicine | DX: M79.7 Fibromyalgia (principal) | CPT/HCPCS: 36415; 71046; 80053; 81001; 82550; 83735; 84100; 84439; 84443; 84550; 85025; 85651; 86003; 86008; 86140 ==

== ENCOUNTER → 2022-10-31 14:31 | Outpatient (BNVA) | payer OTHER, MEDICAID, SELFPAY | PROVIDERS: PCP Family Medicine; Visit Provider Family Medicine | DX: E03.8 Other specified hypothyroidism (principal); E06.3 Autoimmune thyroiditis | CPT/HCPCS: 84439 ==

== ENCOUNTER 2022-11-21 10:46 | Outpatient (CLI) | payer OTHER, MEDICAID, SELFPAY ==
--- NOTE | 2022-11-21 11:16 | XRR_ITS ---
PROCEDURE INFORMATION: Exam: XR Chest Exam date and time: 11/21/2022 11:36 AM Age: 42 years old Clinical indication: Condition or disease; Lung condition and disease; Pulmonary nodule, solitary; Additional info: M19.90 - unspecified osteoarthritis, unspecified site TECHNIQUE: Imaging protocol: Radiologic exam of the chest. Views: 2 views. COMPARISON: CR XR chest 2V* [id number] 09/01/2022 4:13 PM FINDINGS: Lungs: Small indistinct nodular density projecting over the right lower lung zone, stable, likely benign.. No consolidation. Pleural spaces: Unremarkable. No pleural effusion. No pneumothorax. Heart/Mediastinum: Unremarkable. No cardiomegaly. Bones/joints: Unremarkable for age. XR/XR chest 2V* [id number] IMPRESSION: Stable chest. No active disease.
[2022-11-21 11:28] LABS: Basophils % 0.6 %; Eosinophils # 0.1 10^3/uL (0.0-0.8); Eosinophils % 1.7 %; Hematocrit 39.5 % (37.0-47.0); Hemoglobin 13.2 g/dL (11.5-15.3); Lymphocytes # 2.3 10^3/uL (0.8-4.8); Lymphocytes % 32.8 %; Mean Corpuscular HGB Conc 33.4 g/dL (30.0-36.0); Mean Corpuscular Volume 95.6 fl (81-99); Mean Platelet Volume 10.3 fL (7.4-10.4); Monocytes # 0.5 10^3/uL (0.2-0.9); Monocytes % 7.5 %; Neutrophils # 4.03 10^3/uL (1.8-7.7); Neutrophils % 57.3 %; Nucleated Red Blood Cells % 0 %; Platelet Count 319 10^3/cmm (130-400); Red Blood Count 4.13 10^6/uL (4.1-5.3); Red Cell Distribution Width 12.4 % (12.1-15.1)
[2022-11-21 11:37] LABS: Erythrocyte Sedimentation Rate 19 mm/hr (0-15)
[2022-11-21 11:50] LABS: Alanine Aminotransferase 19 U/L (0-33); Albumin Level 4.2 g/dL (3.5-5.2); Alkaline Phosphatase 94 U/L (35-105); Aspartate Amino Transferase 21 U/L (0-32); Blood Urea Nitrogen 6 mg/dL (6-20); Calcium 9.7 mg/dL (8.5-10.5); Carbon Dioxide 26 mmol/L (22-29); Chloride 100 mmol/L (98-107); Globulin 3.3 g/dL (1.3-4.6); Glomerular Filtration Rate 90.9 mL/min (90-130); Glucose 79 mg/dL (65-115); Osmolality Calculated 279 mOsm/kg (285-295); Sodium 136 mmol/L (136-145); Total Bilirubin 0.2 mg/dL (0.15-1.2); Total Protein 7.5 g/dL (6.6-8.7)
== END 2022-11-21 10:47 | disposition home or self-care (01) ==
PROVIDERS: Internal Medicine; PCP Family Medicine; Visit Provider Family Medicine
DX: M79.7 Fibromyalgia (principal); Z79.899 Other long term (current) drug therapy
CPT/HCPCS: 36415; 71046; 80053; 85025; 85651; 86140

== ENCOUNTER 2022-11-25 10:45 | Outpatient (CLI) | payer OTHER, MEDICAID, SELFPAY ==
[2022-11-25 11:26] LABS: Erythrocyte Sedimentation Rate 16 mm/hr (0-15)
[2022-11-25 12:01] LABS: Creatine Phosphokinase 30 U/L (26-192); Free T4 Free Thyroxine 1.49 ng/dL (0.82-1.77); Immunoglobulin IGA 388 mg/dL (70-400); Immunoglobulin IGG 1279 mg/dL (700-1600); Immunoglobulin IGM 59 mg/dL (40-230); Thyroid Stimulating Hormone 0.07 uIU/mL (0.27-4.20)
[2022-11-25 12:23] LABS: Cortisol Random 5.76 ug/dL (2.47-19.5)
[2022-11-28 20:15] LABS: HLA-B27 NEGATIVE (NEGATIVE)
== END 2022-11-25 10:46 | disposition home or self-care (01) ==
LOC: LAB 10:49
PROVIDERS: PCP Family Medicine; Visit Provider Internal Medicine
DX: M79.7 Fibromyalgia (principal); R07.89 Other chest pain; M45.0 Ankylosing spondylitis of multiple sites in spine; R76.8 Other specified abnormal immunological findings in serum
CPT/HCPCS: 36415; 82533; 82550; 82784; 83516; 84439; 84443; 85651; 86140; 86812

== ENCOUNTER → 2022-12-08 15:05 | Outpatient (BNVA) | payer OTHER, MEDICAID, SELFPAY | PROVIDERS: PCP Family Medicine; Visit Provider Specialist | DX: G43.711 Chronic migraine without aura, intractable, with status migrainosus (principal) | CPT/HCPCS: 64615; J0585 ==

== ENCOUNTER 2022-12-16 16:10 | Outpatient (CLI) | payer OTHER, MEDICAID, SELFPAY ==
--- NOTE | 2022-12-16 17:00 | CTR_ITS ---
PROCEDURE INFORMATION: Exam: CT Chest Without Contrast; Diagnostic Exam date and time: 12/16/2022 4:40 PM Age: 42 years old Clinical indication: Condition or disease; Lung condition and disease; Pulmonary nodule, solitary; Additional info: R91.1 - solitary pulmonary nodule TECHNIQUE: Imaging protocol: Diagnostic computed tomography of the chest without contrast. Radiation optimization: All CT scans at this facility use at least one of these dose optimization techniques: automated exposure control; mA and/or kV adjustment per patient size (includes targeted exams where dose is matched to clinical indication); or iterative reconstruction. REPORTING DATA: Count of CT and Cardiac NM exams in prior 12 months: This patient has received 0 known CTs and 0 known cardiac nuclear medicine studies in the 12 months prior to the current study. COMPARISON: CR XR chest 2V* [id number] 11/21/2022 11:36 AM RADIATION DOSE METRICS: Total DLP (mGy-cm): 182.21 FINDINGS: Lungs: Unremarkable. No consolidation. No masses. Pleural spaces: Unremarkable. No pneumothorax. No pleural effusion. Heart: Unremarkable. No cardiomegaly. No pericardial effusion. Lymph nodes: Unremarkable. No enlarged lymph nodes. Vasculature: Unremarkable. No aortic aneurysm. Bones/joints: Unremarkable. No acute fracture. Soft tissues: Unremarkable. CT/CT chest wo con [id number] IMPRESSION: No acute findings. Negative for pulmonary nodule.
== END 2022-12-16 16:11 | disposition home or self-care (01) ==
LOC: RAD 16:13
PROVIDERS: PCP Family Medicine; Visit Provider Internal Medicine
DX: R91.1 Solitary pulmonary nodule (principal)
CPT/HCPCS: 71250

== ENCOUNTER → 2023-01-17 15:09 | Outpatient (BNVA) | payer OTHER, MEDICAID, SELFPAY | PROVIDERS: PCP Family Medicine; Visit Provider Internal Medicine | DX: M79.7 Fibromyalgia (principal); M19.90 Unspecified osteoarthritis, unspecified site; R10.9 Unspecified abdominal pain | CPT/HCPCS: 99214 ==

== ENCOUNTER → 2023-02-16 11:33 | Outpatient (BNVA) | payer OTHER, MEDICAID, SELFPAY | PROVIDERS: PCP Family Medicine; Visit Provider Anesthesiology Pain Medicine | DX: M54.2 Cervicalgia (principal); G89.29 Other chronic pain; M54.50 Low back pain, unspecified; M79.7 Fibromyalgia; M19.90 Unspecified osteoarthritis, unspecified site | CPT/HCPCS: 72040; 99214 ==

== ENCOUNTER → 2023-03-02 10:35 | Outpatient (BNVA) | payer MEDICAID, SELFPAY | PROVIDERS: PCP Family Medicine; Visit Provider Internal Medicine | DX: M79.7 Fibromyalgia (principal) | CPT/HCPCS: 36415; 80053; 82550; 84439; 84443; 85025; 85651; 86140 ==

== ENCOUNTER → 2023-03-28 14:14 | Outpatient (BNVA) | payer MEDICAID, SELFPAY | PROVIDERS: PCP Family Medicine; Visit Provider Anesthesiology Pain Medicine | DX: M53.3 Sacrococcygeal disorders, not elsewhere classified (principal); M46.1 Sacroiliitis, not elsewhere classified | CPT/HCPCS: 77002 ==

== ENCOUNTER → 2023-06-01 12:22 | Outpatient (BNVA) | payer MEDICAID, SELFPAY | PROVIDERS: PCP Family Medicine; Visit Provider Nurse Practitioner Family | DX: R05.9 Cough, unspecified (principal) | CPT/HCPCS: 87400; 87426 ==

== ENCOUNTER → 2023-06-26 12:08 | Outpatient (BNVA) | payer MEDICAID, SELFPAY | PROVIDERS: PCP Family Medicine; Visit Provider Internal Medicine | DX: R07.89 Other chest pain (principal) | CPT/HCPCS: 80053; 81000; 82310; 82533; 83735; 83970; 84100; 84436; 84439; 84443; 84481; 85025; 85651; 86140 ==

== ENCOUNTER → 2023-10-24 15:01 | Outpatient (BNVA) | payer MEDICAID, SELFPAY | PROVIDERS: PCP Family Medicine; Visit Provider Family Medicine | DX: R79.89 Other specified abnormal findings of blood chemistry; I10 Essential (primary) hypertension; E03.8 Other specified hypothyroidism; E06.3 Autoimmune thyroiditis; E78.2 Mixed hyperlipidemia; E55.9 Vitamin D deficiency, unspecified; R53.82 Chronic fatigue, unspecified | CPT/HCPCS: 80053; 80061; 82306; 82607; 83735; 84439; 84443; 84550; 85027; 86140 ==

== ENCOUNTER → 2023-10-25 09:15 | Outpatient (BNVA) | payer MEDICAID, SELFPAY | PROVIDERS: PCP Family Medicine; Visit Provider Internal Medicine | DX: E03.8 Other specified hypothyroidism (principal); E06.3 Autoimmune thyroiditis; M25.541 Pain in joints of right hand; E78.2 Mixed hyperlipidemia; I10 Essential (primary) hypertension; R53.82 Chronic fatigue, unspecified; E55.9 Vitamin D deficiency, unspecified | CPT/HCPCS: 36415; 82310; 82746; 83516; 83970 ==

== ENCOUNTER 2023-12-14 13:13 | Outpatient (CLI) | payer MEDICAID, SELFPAY ==
[2023-12-14 14:08] LABS: Free T4 Free Thyroxine 1.46 ng/dL (0.82-1.77)
== END 2023-12-14 13:14 | disposition home or self-care (01) ==
LOC: LAB 13:14
PROVIDERS: PCP Family Medicine; Visit Provider Internal Medicine
DX: E03.8 Other specified hypothyroidism (principal); E06.3 Autoimmune thyroiditis
CPT/HCPCS: 36415; 84439

== ENCOUNTER → 2024-02-02 12:40 | Outpatient (BNVA) | payer MEDICAID, SELFPAY | PROVIDERS: PCP Family Medicine; Visit Provider Family Medicine | DX: E03.8 Other specified hypothyroidism (principal); E06.3 Autoimmune thyroiditis | CPT/HCPCS: 84439; 84443 ==

== ENCOUNTER 2024-02-07 14:00 | Outpatient (CLI) | payer MEDICAID, SELFPAY ==
--- NOTE | 2024-02-07 13:53 | MM_ITS ---
WS: [id number] BILATERAL 3D TOMOSYNTHESIS DIGITAL SCREENING MAMMOGRAPHY WITH CAD CLINICAL INFORMATION: SCREENING HISTORY: Screening mammogram. No current complaints. COMPARISON: 2021 TECHNIQUE: Bilateral CC and MLO views. FINDINGS: Scattered fibroglandular densities bilaterally. No suspicious focal mass, asymmetry, calcifications, or architectural distortion. No evidence of malignancy. MM/[place] [id number] IMPRESSION: BI-RADS: 1-Negative FOLLOW UP: 1 Year Follow-up Recommend return to annual screening mammography.
[2024-02-07 14:46] LABS: Basophils % 0.4 %; Eosinophils # 0.1 10^3/uL (0.0-0.8); Eosinophils % 1.3 %; Hematocrit 39.3 % (36-47); Lymphocytes # 2.4 10^3/uL (0.8-4.8); Lymphocytes % 35.5 %; Mean Corpuscular HGB Conc 33.1 g/dL (30-55); Mean Corpuscular Hemoglobin 31.6 pg (27-33); Mean Corpuscular Volume 95.4 fl (85-98); Mean Platelet Volume 10.6 fL (7.4-10.4); Monocytes # 0.5 10^3/uL (0.2-0.9); Monocytes % 7.3 %; Neutrophils # 3.77 10^3/uL (1.8-7.7); Neutrophils % 55.2 %; Nucleated Red Blood Cells % 0 %; Platelet Count 308 10^3/cmm (157-399); Red Blood Count 4.12 10^6/uL (3.85-5.65); Red Cell Distribution Width 11.9 % (12.1-15.1); White Blood Count 6.84 10^3/uL (3.29-11.43)
[2024-02-07 15:06] LABS: Alanine Aminotransferase 12 U/L (0-33); Albumin Level 4.5 g/dL (3.5-5.2); Alkaline Phosphatase 88 U/L (35-105); Aspartate Amino Transferase 15 U/L (0-32); Globulin 3.2 g/dL (1.3-4.6); Glomerular Filtration Rate 90.5 mL/min (90-130); Total Bilirubin 0.4 mg/dL (0.15-1.2); Total Protein 7.7 g/dL (6.6-8.7)
[2024-02-07 15:26] LABS: Hepatitis B Core AB, Total Non-Reactive (Nonreactive); Hepatitis B Surface Antigen Non-Reactive (Nonreactive); Hepatitis C Virus Antibody Non-Reactive (Nonreactive)
[2024-02-07 16:14] LABS: Erythrocyte Sedimentation Rate 17 mm/hr (0-15)
[2024-02-08 14:15] LABS: Cyclic Citrullinated Peptide <16 UNITS
[2024-02-09 12:25] LABS: Quantiferon Mitogen 6.01 IU/mL; Quantiferon Nil 0.02 IU/mL; Quantiferon TB Gold NEGATIVE (NEGATIVE)
== END 2024-02-07 14:01 | disposition home or self-care (01) ==
PROVIDERS: Absent Provider Internal Medicine Rheumatology; PCP Family Medicine; Visit Provider Family Medicine
DX: Z12.31 Encounter for screening mammogram for malignant neoplasm of breast (principal); R92.323 Mammographic fibroglandular density, bilateral breasts; Z79.899 Other long term (current) drug therapy; M19.90 Unspecified osteoarthritis, unspecified site; Z11.1 Encounter for screening for respiratory tuberculosis; Z11.59 Encounter for screening for other viral diseases
CPT/HCPCS: 77063; 77067; 80076; 82565; 83520; 85025; 85651; 86140; 86200; 86480; 86704; 86803; 87340

== ENCOUNTER 2024-03-13 13:43 | Outpatient (CLI) | payer MEDICAID, SELFPAY ==
--- NOTE | 2024-03-13 13:47 | XR_ITS ---
WS: [id number] RIGHT FOOT: 3 VIEW(S) TECHNIQUE: AP, oblique and lateral. HISTORY: M06.041 - Rheumatoid arthritis without rheumatoid factor,... COMPARISON: None available. No acute fracture or dislocation. Osseous and screw fusion at the first IP joint. No lucency around the hardware. No fracture. No erosi ons at the metatarsal heads. Normal tarsal alignment. No soft tissue abnormality or bone destruction. XR/XR foot RT min 3V* [id number] IMPRESSION: 1. Prior screw fusion at the first IP joint. There is complete bone fusion acr oss the IP joint. 2. Otherwise the foot x-ray is negative.
--- NOTE | 2024-03-13 13:47 | XR_ITS ---
WS: [email or web address] LEFT FOOT: 3 VIEW(S) TECHNIQUE: AP, oblique and lateral. HISTORY: M06.041 - Rheumatoid arthritis without rheumatoid factor,... COMPARISON: None available. No acute fracture or dislocation. Screw fusion across the first IP joint. There is complete osseous fusion. No lucency around the hardw are. No widening of the Lisfranc ligament. Tarsometatarsal alignment is normal. No soft tissue abnormality or bone destruction. XR/XR foot LT min 3V* [id number] IMPRESSION: 1. Prior screw fusion at the first IP joint with complete bony fusion. 2. Remaining foot is negative.
--- NOTE | 2024-03-13 13:47 | XR_ITS ---
WS: [id number] LEFT HIP HISTORY: M06.041 - Rheumatoid arthritis without rheumatoid factor,... COMPARISON: 01/19/2021 LEFT hip: No acute fracture or dislocation. No bone destruction. There is very minimal sclerosis zuri g the superior acetabulum. No joint space narrowing. Normal appearance of the SI joint with no widening. No erosions identified. The sacrum is normal. No soft tissue abnormality. XR/XR hip LT 2-3V wo/w pel* [id number] IMPRESSION: 1. No hip fracture. 2. Very minimal sclerosis along the superior acetabulum. No joint space narrow ing.
[2024-03-13 14:28] LABS: Free T4 Free Thyroxine 1.51 ng/dL (0.82-1.77); Thyroid Stimulating Hormone 0.17 uIU/mL (0.27-4.20)
== END 2024-03-13 13:44 | disposition home or self-care (01) ==
LOC: RAD 13:44
PROVIDERS: Absent Provider Internal Medicine; PCP Family Medicine; Visit Provider Internal Medicine Rheumatology
DX: E03.8 Other specified hypothyroidism (principal); M06.041 Rheumatoid arthritis without rheumatoid factor, right hand; M06.042 Rheumatoid arthritis without rheumatoid factor, left hand; E06.3 Autoimmune thyroiditis; Q70.22 Fused toes, left foot; Q70.21 Fused toes, right foot
CPT/HCPCS: 36415; 73502; 73630; 84439; 84443

== ENCOUNTER → 2024-03-20 15:00 | Outpatient (BNVA) | payer MEDICARE, MEDICAID, SELFPAY | PROVIDERS: PCP Family Medicine; Visit Provider Internal Medicine Rheumatology | DX: M06.041 Rheumatoid arthritis without rheumatoid factor, right hand (principal); M06.042 Rheumatoid arthritis without rheumatoid factor, left hand; Z71.89 Other specified counseling | CPT/HCPCS: 20610; J1010 ==

== ENCOUNTER → 2024-03-21 14:57 | Outpatient (BNVA) | payer MEDICARE, MEDICAID, SELFPAY | PROVIDERS: PCP Family Medicine; Visit Provider Specialist | DX: G43.711 Chronic migraine without aura, intractable, with status migrainosus (principal); F42.2 Mixed obsessional thoughts and acts; F41.1 Generalized anxiety disorder | CPT/HCPCS: 64615; J0585 ==

== ENCOUNTER → 2024-04-24 13:00 | Outpatient (BNVA) | payer MEDICARE, MEDICAID, SELFPAY | PROVIDERS: PCP Family Medicine; Visit Provider Family Medicine | DX: E03.8 Other specified hypothyroidism; E06.3 Autoimmune thyroiditis; I10 Essential (primary) hypertension; R79.89 Other specified abnormal findings of blood chemistry; E55.9 Vitamin D deficiency, unspecified; F33.2 Major depressive disorder, recurrent severe without psychotic features; E78.2 Mixed hyperlipidemia | CPT/HCPCS: 80053; 80061; 82306; 82607; 82728; 82746; 83540; 84439; 84443; 85025; 85651; 86140 ==

== ENCOUNTER → 2024-05-08 09:56 | Outpatient (BNVA) | payer MEDICARE, MEDICAID, SELFPAY | PROVIDERS: PCP Family Medicine; Visit Provider Nurse Practitioner Family | DX: L85.8 Other specified epidermal thickening (principal); L72.0 Epidermal cyst; L65.0 Telogen effluvium; D22.39 Melanocytic nevi of other parts of face; L81.4 Other melanin hyperpigmentation; Z85.828 Personal history of other malignant neoplasm of skin | CPT/HCPCS: 99213 ==

== ENCOUNTER → 2024-05-29 14:17 | Outpatient (BNVA) | payer MEDICARE, MEDICAID, SELFPAY | PROVIDERS: PCP Family Medicine; Visit Provider Internal Medicine Rheumatology | DX: M06.041 Rheumatoid arthritis without rheumatoid factor, right hand (principal); M06.042 Rheumatoid arthritis without rheumatoid factor, left hand; M25.551 Pain in right hip; M25.552 Pain in left hip; Z71.85 Encounter for immunization safety counseling; G57.02 Lesion of sciatic nerve, left lower limb; Z79.899 Other long term (current) drug therapy | CPT/HCPCS: 20610; 99214; J1010 ==

== ENCOUNTER → 2024-08-19 13:13 | Outpatient (BNVA) | payer MEDICARE, MEDICAID, SELFPAY | PROVIDERS: PCP Family Medicine; Visit Provider Internal Medicine Rheumatology | DX: M06.041 Rheumatoid arthritis without rheumatoid factor, right hand (principal); M06.042 Rheumatoid arthritis without rheumatoid factor, left hand; Z79.899 Other long term (current) drug therapy | CPT/HCPCS: 80076; 82565; 85025; 85651; 86140 ==

== ENCOUNTER → 2024-08-30 12:26 | Outpatient (BNVA) | payer MEDICARE, SELFPAY | PROVIDERS: PCP Family Medicine; Visit Provider Specialist | DX: G43.711 Chronic migraine without aura, intractable, with status migrainosus (principal) | CPT/HCPCS: 64615; J0585 ==

== ENCOUNTER → 2024-10-09 12:23 | Outpatient (BNVA) | payer MEDICARE, SELFPAY | PROVIDERS: PCP Family Medicine; Visit Provider Internal Medicine Rheumatology | DX: M06.041 Rheumatoid arthritis without rheumatoid factor, right hand (principal); M06.042 Rheumatoid arthritis without rheumatoid factor, left hand; Z71.85 Encounter for immunization safety counseling; Z79.899 Other long term (current) drug therapy; M25.552 Pain in left hip; G57.02 Lesion of sciatic nerve, left lower limb | CPT/HCPCS: 99214 ==

== ENCOUNTER → 2024-10-22 14:55 | Outpatient (BNVA) | payer MEDICARE, SELFPAY | PROVIDERS: PCP Family Medicine; Visit Provider Nurse Practitioner Family | DX: L65.0 Telogen effluvium (principal); F43.0 Acute stress reaction; N64.52 Nipple discharge; Z08 Encounter for follow-up examination after completed treatment for malignant neoplasm; Z85.828 Personal history of other malignant neoplasm of skin | CPT/HCPCS: 99214 ==

== ENCOUNTER 2024-11-19 14:03 | Outpatient (CLI) | payer MEDICARE, SELFPAY ==
[2024-11-19 14:49] LABS: Basophils % 0.4 %; Eosinophils # 0.1 10^3/uL (0.0-0.8); Eosinophils % 1.3 %; Erythrocyte Sedimentation Rate 4 mm/hr (0-15); Hematocrit 35.9 % (36-47); Lymphocytes # 2.3 10^3/uL (0.8-4.8); Lymphocytes % 44.3 %; Mean Corpuscular HGB Conc 32.3 g/dL (30-55); Mean Corpuscular Hemoglobin 32.3 pg (27-33); Mean Platelet Volume 9.9 fL (7.4-10.4); Monocytes # 0.5 10^3/uL (0.2-0.9); Neutrophils # 2.35 10^3/uL (1.8-7.7); Neutrophils % 44.8 %; Nucleated Red Blood Cells % 0 %; Platelet Count 260 10^3/cmm (157-399); Red Blood Count 3.59 10^6/uL (3.85-5.65); Red Cell Distribution Width 13.1 % (12.1-15.1); White Blood Count 5.24 10^3/uL (3.29-11.43)
[2024-11-19 15:12] LABS: Alanine Aminotransferase 9 U/L (0-33); Albumin Level 4.4 g/dL (3.5-5.2); Alkaline Phosphatase 63 U/L (35-105); Aspartate Amino Transferase 13 U/L (0-32); Globulin 2.8 g/dL (1.3-4.6); Glomerular Filtration Rate 107.6 mL/min (90-130); Total Bilirubin 0.3 mg/dL (0.15-1.2); Total Protein 7.2 g/dL (6.6-8.7)
== END 2024-11-19 14:04 | disposition home or self-care (01) ==
PROVIDERS: PCP Family Medicine; Referring Provider Nurse Practitioner Family; Visit Provider Internal Medicine Rheumatology
DX: L65.0 Telogen effluvium (principal); Z79.899 Other long term (current) drug therapy; N64.52 Nipple discharge
CPT/HCPCS: 36415; 80076; 82565; 85025; 85651; 86140

== ENCOUNTER 2024-11-25 08:34 | Outpatient (CLI) | payer MEDICARE, SELFPAY ==
--- NOTE | 2024-11-25 08:41 | US_ITS ---
WS: [id number] ULTRASOUND LEFT BREAST, limited HISTORY: NIPPLE DISCHARGE, white to green discharge. COMPARISON: Prior mammogram 02/07/2024, LEFT breast ultrasound 02/21/2014 TECHNIQUE: 2-D and Doppler. Ultrasound directed to the retroareolar region. No dilated ducts are identified. There is no mass or distortion. No nipple retraction. US/US breast LT limited* [id number] IMPRESSION: BI-RADS: 2- Benign FOLLOW-UP: See Report 1. No dilated ducts are identified in the LEFT retroareolar region. 2. Screening mammogram to be performed in January 2025.
== END 2024-11-25 08:35 | disposition home or self-care (01) ==
PROVIDERS: PCP Family Medicine; Visit Provider Nurse Practitioner Family
DX: N64.52 Nipple discharge (principal)
CPT/HCPCS: 76642

== ENCOUNTER 2024-11-29 11:02 | Outpatient (CLI) | payer MEDICARE, SELFPAY ==
[2024-11-29 12:27] LABS: Basophils % 0.4 %; Eosinophils # 0.1 10^3/uL (0.0-0.8); Eosinophils % 1.5 %; Hematocrit 35.9 % (36-47); Lymphocytes # 1.9 10^3/uL (0.8-4.8); Lymphocytes % 36.5 %; Mean Corpuscular HGB Conc 31.8 g/dL (30-55); Mean Corpuscular Hemoglobin 32.7 pg (27-33); Mean Corpuscular Volume 102.9 fl (85-98); Mean Platelet Volume 10.3 fL (7.4-10.4); Monocytes # 0.2 10^3/uL (0.2-0.9); Monocytes % 4.2 %; Neutrophils # 2.96 10^3/uL (1.8-7.7); Nucleated Red Blood Cells % 0 %; Platelet Count 293 10^3/cmm (157-399); Red Blood Count 3.49 10^6/uL (3.85-5.65); Red Cell Distribution Width 13.4 % (12.1-15.1)
[2024-11-29 13:15] LABS: 25 Hydroxy Vitamin D 35 ng/mL (30-100); Alanine Aminotransferase 13 U/L (0-33); Albumin Level 4.4 g/dL (3.5-5.2); Alkaline Phosphatase 68 U/L (35-105); Anion Gap 13.5 (5-19); Aspartate Amino Transferase 18 U/L (0-32); Blood Urea Nitrogen 8 mg/dL (6-20); Calcium 9.2 mg/dL (8.5-10.5); Carbon Dioxide 25 mmol/L (22-29); Chloride 105 mmol/L (98-107); Ferritin 80 ng/mL (15-150); Glomerular Filtration Rate 107.6 mL/min (90-130); Glucose 105 mg/dL (65-115); Osmolality Calculated 287 mOsm/kg (285-295); Potassium 4.5 mmol/L (3.5-5.1); Prolactin 18.08 ng/mL (4.8-23.3); Sodium 139 mmol/L (136-145); Thyroid Stimulating Hormone 10.34 uIU/mL (0.27-4.20); Total Bilirubin 0.4 mg/dL (0.15-1.2); Total Protein 7.4 g/dL (6.6-8.7)
[2024-11-29 14:00] LABS: Testosterone Total 7.5 ng/dL (8.4-48.1)
[2024-11-30 06:18] LABS: Dehydroepiandrosterone Sulfate 75 mcg/dL (15-205)
[2024-12-02 18:30] LABS: Zinc Level, Serum or Plasma 75 mcg/dL (60-130)
== END 2024-11-29 11:03 | disposition home or self-care (01) ==
LOC: LAB 11:07
PROVIDERS: PCP Family Medicine; Visit Provider Nurse Practitioner Family
DX: L65.0 Telogen effluvium (principal); N18.32 Chronic kidney disease, stage 3b; E78.00 Pure hypercholesterolemia, unspecified; N64.52 Nipple discharge
CPT/HCPCS: 36415; 80053; 82306; 82627; 82728; 84146; 84402; 84403; 84439; 84443; 84630; 85025

== ENCOUNTER → 2025-01-21 15:31 | Outpatient (BNVA) | payer MEDICARE, SELFPAY | PROVIDERS: PCP Family Medicine; Visit Provider Family Medicine | DX: Z79.899 Other long term (current) drug therapy (principal); M06.041 Rheumatoid arthritis without rheumatoid factor, right hand; M06.042 Rheumatoid arthritis without rheumatoid factor, left hand; R13.10 Dysphagia, unspecified | CPT/HCPCS: 80076; 82565; 84443; 85025; 85651 ==

== ENCOUNTER → 2025-01-29 12:35 | Outpatient (BNVA) | payer MEDICARE, SELFPAY | PROVIDERS: PCP Family Medicine; Visit Provider Internal Medicine Rheumatology | DX: M06.041 Rheumatoid arthritis without rheumatoid factor, right hand (principal); M06.042 Rheumatoid arthritis without rheumatoid factor, left hand; Z79.899 Other long term (current) drug therapy; Z71.85 Encounter for immunization safety counseling; M25.552 Pain in left hip; G57.02 Lesion of sciatic nerve, left lower limb | CPT/HCPCS: 99214 ==

== ENCOUNTER 2025-06-17 12:54 | Outpatient (CLI) | payer MEDICARE, SELFPAY ==
[2025-06-17 13:22] LABS: Hematocrit 36.2 % (36-47); Hemoglobin 12.00 g/dL (11.27-16.99); Mean Corpuscular HGB Conc 33.1 g/dL (30-55); Mean Corpuscular Hemoglobin 31.4 pg (27-33); Mean Corpuscular Volume 94.8 fl (85-98); Nucleated Red Blood Cells % 0 %; Platelet Count 271 10^3/cmm (157-399); Red Blood Count 3.82 10^6/uL (3.85-5.65); White Blood Count 7.13 10^3/uL (3.29-11.43)
[2025-06-17 13:48] LABS: Alanine Aminotransferase 16 U/L (0-33); Albumin Level 4.7 g/dL (3.5-5.2); Alkaline Phosphatase 69 U/L (35-105); Aspartate Amino Transferase 24 U/L (0-32); Globulin 3.0 g/dL (1.3-4.6); Total Protein 7.7 g/dL (6.6-8.7)
[2025-06-17 14:07] LABS: Hepatitis B Surface Antigen Non-Reactive (Nonreactive)
== END 2025-06-17 12:55 | disposition home or self-care (01) ==
PROVIDERS: PCP Family Medicine; Visit Provider Internal Medicine Rheumatology
DX: M06.041 Rheumatoid arthritis without rheumatoid factor, right hand (principal); M06.042 Rheumatoid arthritis without rheumatoid factor, left hand; Z71.85 Encounter for immunization safety counseling; M70.62 Trochanteric bursitis, left hip; G57.02 Lesion of sciatic nerve, left lower limb; Z79.899 Other long term (current) drug therapy
CPT/HCPCS: 36415; 80076; 82565; 85025; 85651; 86140; 86480; 86704; 86803; 87340; 99214